=== PATIENT | female | born 2000 | race Caucasian/White ===

== ENCOUNTER 2024-07-13 04:28 | Emergency (ER) | payer SELFPAY ==
[2024-07-13 04:31] VITALS: BP 126/101; PULSE 73; RESP 16; TEMP 36.5; O2SAT 100; BMI 30.4
[2024-07-13 04:43] VITALS: PULSE 71; O2SAT 100
[2024-07-13] MEDS: doxycycline 100 mg Tablet PO (05:05)
[2024-07-13] MEDS: ibuprofen 600 mg Tablet PO (05:05)
[2024-07-13 05:11] VITALS: BP 119/80; PULSE 65; O2SAT 95
--- NOTE | 2024-07-13 05:39 | W.ED.SKABFB ---
HPI - Skin/Abscess/Foreign Bdy General: Chief complaint: Skin/Abscess/Foreign Body Stated complaint: Leg Swollen\Bite Time Seen by Provider: 07/13/24 04:44 History of Present Illness: Patient is a well-appearing 23-year-old female seen for left foot swelling, red bumps on her foot and lower leg, and right knee effusion. She is uncertain how many this happened. She denies any trauma or abuse. She states that she was just sitting around the house with her mother when this came on suddenly. She has trouble moving her toes her foot is still swollen and she has some sensory loss at the toes due to the swelling. She denies abuse, trauma, being on her feet too long, and specifically [place] being [place]. She is here with her mother because they would like an antibiotic for the red bumps on her foot. Related Data Previous Rx's ?Medication ?Instructions ?Recorded doxycycline hyclate 100 mg capsule 100 mg PO BID 10 days #20 caps 07/13/24 Allergies Allergy/AdvReac Type Severity Reaction Status Date / Time No Known Allergies Allergy Verified 07/13/24 04:56 [facility] ED Female Reproductive History: Date of last menstrual period: 06/01/24 Physical Exam Const: COMMON NORMALS: no acute distress, patient oriented x3 and alert HENMT: COMMON NORMALS: normocephalic and atraumatic HEAD & SCALP: normocephalic and atraumatic Eye: COMMON NORMALS: Equal, round and reactive pupils present, EOMs intact bilaterally and no scleral icterus PUPIL: Yes Equal, round and reactive pupils present Resp: COMMON NORMALS: normal respiratory effort and No retractions Cardio: COMMON NORMALS: regular rate, regular rhythm and No murmurs present (Cardio) RATE: regular rate RHYTHM: regular rhythm GI: COMMON NORMALS: Normal to inspection, nondistended, normoactive bowel sounds present, Soft to palpation and non-tender PALPATION: Yes Soft to palpation Extremity: OTHER: significant edema of the left foot. No obvious bruising or deformity. No focal tenderness with palpation of the toes or foot. Full range of motion of the left ankle. Right knee has a mild to moderate effusion with no warmth or redness overlying. She lacks roughly 30 degrees of flexion due to pain from the effusion. No ligamentous laxity of the knee. Neuro: COMMON NORMALS: patient oriented x3 SENSORIUM/ORIENTATION: Yes alert Skin: OTHER: Multiple infected hair follicles of the left foot and lower leg consistent with mild folliculitis. No surrounding cellulitis. Course Vital Signs: Vital signs: Vital Signs Temperature 97.7 F 07/13/24 04:31 Pulse Rate 65 07/13/24 05:11 Respiratory Rate 16 07/13/24 04:31 Blood Pressure 119/80 07/13/24 05:11 Pulse Oximetry 95 07/13/24 05:11 Oxygen Delivery Me thod Room Air 07/13/24 04:31 MDM - Skin/Abscess/Foreign Bdy Medicial Decision Making In summary, patient has a mild to moderate right knee effusion which does not appear to be infectious in nature nor does the knee seem unstable. She is able to walk on it. She also has a left foot which is swollen and there are some red bumps on the foot and the lower leg consistent with folliculitis. She is somewhat disheveled looking and appears to have been walking barefoot [place] the [place], though she specifically denies doing so. I do not detect any other emergency requiring immediate attention or imaging. She will be given a short course of doxycycline and instructions to use soap and water more frequently. No radiology studies performed this visit Discharge Plan Discharge Patient Disposition: Home Clinical Impression: Localized swelling of left foot, Effusion of right knee, Folliculitis Condition: Stable Prescriptions: New doxycycline hyclate 100 mg capsule 100 mg PO BID 10 Days Qty: 20 0RF Discharge Orders: Discharge ED (Routine); Ordered 07/13/24 Ordered By: Omer Parsons Discharge Diet: Usual diet Discharge Activity: Increase activity as tolerated Patient Instructions: Cellulitis (ED), Swollen Knee Joint (ED) Activity Restrictions/Additional Instructions: take 600mg ibuprofen 3 times daily as needed for pain and keep your legs elevated for the next few days to help the swelling go down Print Language: Slovenian Coding Level of Care Code ED Sales And Marketing Assistant for Divina Mir
== END 2024-07-13 05:10 | disposition home or self-care (01) ==
PROVIDERS: Emergency Provider Student in an Organized Health Care Education/Training Program
DX: R60.0 Localized edema (principal); M25.461 Effusion, right knee; L73.9 Follicular disorder, unspecified
CPT/HCPCS: 99283; J9999